=== PATIENT | male | born 1965 | race Hispanic/Latino ===

== ENCOUNTER 2020-02-18 15:39 | Emergency (ER) | payer OTHER ==
[2020-02-18] MEDS ORDERED: Boostrix 0.5 ML (Tdap) VIAL ONE (17:29)
== END 2020-02-18 17:53 | disposition home or self-care (01) ==
LOC: ERS 15:39
DX: S01.81XA Laceration without foreign body of other part of head, initial encounter (principal); Z23 Encounter for immunization; W25.XXXA Contact with sharp glass, initial encounter
CPT/HCPCS: 90471; 90715